=== PATIENT | female | born 1960 | race African-American/Black ===

== ENCOUNTER → 2016-07-01 | Outpatient (CLI) | payer BC ==
--- NOTE | 2016-07-02 11:15 | MM ---
Reason for exam: screening (asymptomatic). Last mammogram was performed 1 year ago. History: Patient is postmenopausal. Family history of breast cancer in mother at age 86 and premenopausal breast cancer in sister at age 30. Took estrogen for 3 months beginning at age 50. Took progesterone for 3 months beginning at age 50. Physical Findings: A clinical breast exam by your physician is recommended on an annual basis and results should be correlated with mammographic findings. MG Screening Mammo w CAD Bilateral CC and MLO view(s) were taken. Prior study comparison: June 19, 2015, bilateral MG screening mammo w CAD. June 01, 2014, bilateral MG screening mammo w CAD. The breast tissue is heterogeneously dense. This may lower the sensitivity of mammography. No significant changes when compared with prior studies. ASSESSMENT: Negative, BI-RAD 1 RECOMMENDATION: Routine screening mammogram of both breasts in 1 year.
== END | disposition home or self-care (01) ==
LOC: RADMAMWWP 09:01
PROVIDERS: ATTEND Internal Medicine
DX: Z12.31 Encounter for screening mammogram for malignant neoplasm of breast (principal)

== ENCOUNTER 2016-10-11 13:25 | Emergency (ER) | payer BC ==
[2016-10-11 13:39] VITALS: RESP 18
[2016-10-11] MEDS ORDERED: ASPIRIN 325 MG TAB PO STA (14:10)
[2016-10-11] MEDS ORDERED: MECLIZINE 12.5 MG TAB PO STA (14:10)
[2016-10-11] MEDS ORDERED: SODIUM CHLORIDE 0.9% 1,000 ML IV ONE (14:10)
[2016-10-11 14:39] LABS: Basophils % (A) 0 %; CH 25.1; CHCM 31.8; Eosinophils # (A) 0.1 k/uL (0-0.7); Eosinophils % (A) 1 %; HCT 42.3 % (34.0-46.0); HDW 2.39; HGB 13.5 gm/dL (11.4-16.0); Luc # (Auto) 0.08; Luc % (Auto) 1; Lymphocytes # (A) 0.9 k/uL (1.0-4.8); Lymphocytes % (A) 15 %; MCH 25.2 pg (25.0-35.0); MCHC 31.8 g/dL (31.0-37.0); MCV 79.4 fL (80.0-100.0); Mean Platelet Volume 7.1; Monocytes # (A) 0.2 k/uL (0-1.0); Monocytes % (A) 4 %; Neutrophils # (A) 4.8 k/uL (1.3-7.7); Neutrophils % (A) 79 %; RBC 5.33 m/uL (3.80-5.40); RDW 14.6 % (11.5-15.5); WBC 6.1 k/uL (3.8-10.6)
[2016-10-11 14:54] LABS: Anion Gap 12 mmol/L; Blood Urea Nitrogen 16 mg/dL (7-17); Calcium 9.5 mg/dL (8.4-10.2); Carbon Dioxide 24 mmol/L (22-30); Chloride 109 mmol/L (98-107); Glucose 101 mg/dL (74-99); Non-African American GFR(MDRD) >60 (>60 ml/min/1.73 sqM); Potassium 4.3 mmol/L (3.5-5.1); Sodium 145 mmol/L (137-145)
--- NOTE | 2016-10-11 15:04 | XR ---
EXAMINATION TYPE: XR chest 2V DATE OF EXAM: 10/11/2016 2:42 PM COMPARISON: NONE HISTORY: Chest pain TECHNIQUE: Frontal and lateral views of the chest are obtained. FINDINGS: There is no heart failure nor confluent pneumonic infiltrate. There is elevated left diaph ragm. There is a distended gas-filled stomach. There is no sign of pleural effusion. IMPRESSION: Mildly elevated left diaphragm could relate to partial paralysis. No heart failure. Larg e gas-filled stomach.
[2016-10-11] MEDS ORDERED: ONDANSETRON 4 MG/2 ML VIAL IVP STA (15:29)
--- NOTE | 2016-10-11 15:29 | ED ---
General Adult HPI - General Chief complaint: Nausea/Vomiting/Diarrhea Stated complaint: Vomiting, dizzy Source: patient Mode of arrival: wheelchair Limitations: no limitations - History of Present Illness Initial comments: 56-year-old Afro-[place] female presented for evaluation of lightheadedness and dizziness since Wednesday. She states that her symptoms have gradually progressed through yesterday at which point she started to develop some nausea and vomiting. Today she had some dry heaves. She describes the symptoms as room spinning and she's better when laying down worsen she standing up. She is also had some episodes of diarrhea. She had similar symptoms in the past when she had a sinus infection but states that she hasn't been exhibiting any symptoms like that currently. After further questioning she also admitted to some substernal chest discomfort that is a little different than her normal GERD. She denies any abdominal pain, constipation, dysuria, hematochezia, melena, hematemesis. - Related Data Home Medications Medication Instructions Recorded Confirmed Diphenox-Atrop 2.5-0.025 mg 1 tab PO QID PRN 10/11/16 10/11/16 [Lomotil] Ibuprofen [Advil] 400 mg PO Q8HR PRN 10/11/16 10/11/16 Previous Rx's Medication Instructions Recorded Meclizine [Antivert] 25 mg PO TID #30 tab 10/11/16 Allergies Allergy/AdvReac Type Severity Reaction Status Date / Time No Known Allergies Allergy Unverified 10/11/16 14:12 Review of Systems ROS Statement: Those systems with pertinent positive or pertinent negative responses have been documented in the HPI. ROS Other: All systems not noted in ROS Statement are negative. Constitutional: Denies: fever, chills Eyes: Denies: eye pain, eye discharge, vision change ENT: Denies: ear pain, throat pain Respiratory: Denies: cough, dyspnea Cardiovascular: Reports: chest pain. Denies: palpitations, dyspnea on exertion , orthopnea, edema Endocrine: Denies: fatigue, polydipsia, polyuria Gastrointestinal: Reports: nausea, vomiting, diarrhea. Denies: abdominal pain, constipation, hematemesis, melena, hematochezia Genitourinary: Denies: urgency, dysuria Musculoskeletal: Denies: back pain, arthralgia, myalgia Skin: Denies: rash, lesions Neurological: Reports: vertigo. Denies: headache, weakness, numbness, paresthesias, confusion Psychiatric: Denies: anxiety, depression Hematological/Lymphatic: Denies: easy bleeding, easy bruising Past Medical History Past Medical History: No Reported History History of Any Multi-Drug Resistant Organisms: None Reported Past Surgical History: Section, Hysterectomy Past Psychological History: No Psychological Hx Reported Smoking Status: Never smoker Past Alcohol Use History: None Reported Past Drug Use History: None Reported General Exam Limitations: no limitations Course Vital Signs 10/11/16 10/11/16 10/11/16 13:36 14:38 18:46 Temperature 98.0 F 98.2 F Pulse Rate 84 71 61 Respiratory 18 18 18 Rate Blood Pressure 142/87 143/95 122/83 O2 Sat by Pulse 100 99 100 Oximetry EKG Findings - EKG Comments: EKG Findings:: Normal sinus rhythm with a ventricular rate of 82, YASMANI 136, QRS 72, QT/QTC 380/443. Medical Decision Making - Medical Decision Making 56-year-old female presented for evaluation of nausea vomiting lightheadedness and dizziness since Wednesday. She states her symptoms progressed through Wednesday and resulted in the nausea and vomiting Wednesday and dry heaving today. She states the symptoms are like the room is spinning and she's better when laying down and worse when standing up. On physical examination she has cranial nerves II-12 intact without focal neurologic deficit. She is able to ambulate with normal gait and station. Lungs are clear to auscultation bilaterally abdomen is soft and nontender to palpation without peritoneal signs of guarding, rigidity, rebound. Heart sounds reveal no murmurs rubs or gallops. Patient states the nausea and vomiting is only present when she has a lightheadedness and dizziness. With a normal neuro exam is likely due to vertigo (BPPV) however given some mild chest discomfort we'll work her up to rule out ACS. Labs revealed no significant abnormalities and chest x-ray showed no acute process. The patient was reevaluated and stated she had resolution of her symptoms. She is feeling much better and stated that she would like to be discharged home. The patient was informed that this would be possible and that she would be required to follow-up with her primary care physician but to return to this facility if her symptoms should worsen or persist. She is further informed that she be given a prescription for Antivert and to take as prescribed. The patient acknowledged an understanding of this information and agreed with this plan of care. - Lab Data Result diagrams: 10/11/16 14:23 10/11/16 14:23 Lab Results 10/11/16 10/11/16 10/11/16 Range/Units 14:23 14: 14:23 WBC 6.1 (3.8-10.6) k/uL RBC 5.33 (3.80-5.40) m/uL Hgb 13.5 (11.4-16.0) gm/dL Hct 42.3 (34.0-46.0) % MCV 79.4 L (80.0-100.0) fL MCH 25.2 (25.0-35.0) pg MCHC 31.8 (31.0-37.0) g/dL RDW 14.6 (11.5-15.5) % Plt Count 210 (150-450) k/uL Neutrophils % 79 % Lymphocytes % 15 % Monocytes % 4 % Eosinophils % 1 % Basophils % 0 % Neutrophils # 4.8 (1.3-7.7) k/uL Lymphocytes # 0.9 L (1.0-4.8) k/uL Monocytes # 0.2 (0-1.0) k/uL Eosinophils # 0.1 (0-0.7) k/uL Basophils # 0.0 (0-0.2) k/uL Sodium 145 (137-145) mmol/L Potassium 4.3 (3.5-5.1) mmol/L Chloride 109 H (98-107) mmol/L Carbon Dioxide 24 (22-30) mmol/L Anion Gap 12 mmol/L BUN 16 (7-17) mg/dL Creatinine 0.70 (0.52-1.04) mg/dL Est GFR (MDRD) Af Amer >60 (>60 ml/min/1.73 sqM) Est GFR (MDRD) Non-Af >60 (>60 ml/min/1.73 sqM) Glucose 101 H (74-99) mg/dL Calcium 9.5 (8.4-10.2) mg/dL Troponin I (0.000-0.034) ng/mL NT-Pro-B Natriuret Pep 80 pg/mL 10/11/16 10/11/16 Range/Units 14:23 17:40 WBC (3.8-10.6) k/uL RBC (3.80-5.40) m/uL Hgb (11.4-16.0) gm/dL Hct (34.0-46.0) % MCV (80.0-100.0) fL MCH (25.0-35.0) pg MCHC (31.0-37.0) g/dL RDW (11.5-15.5) % Plt Count (150-450) k/uL Neutrophils % % Lymphocytes % % Monocytes % % Eosinophils % % Basophils % % Neutrophils # (1.3-7.7) k/uL Lymphocytes # (1.0-4.8) k/uL Monocytes # (0-1.0) k/uL Eosinophils # (0-0.7) k/uL Basophils # (0-0.2) k/uL Sodium (137-145) mmol/L Potassium (3.5-5.1) mmol/L Chloride (98-107) mmol/L Carbon Dioxide (22-30) mmol/L Anion Gap mmol/L BUN (7-17) mg/dL Creatinine (0.52-1.04) mg/dL Est GFR (MDRD) Af Amer (>60 ml/min/1.73 sqM) Est GFR (MDRD) Non-Af (>60 ml/min/1.73 sqM) Glucose (74-99) mg/dL Calcium (8.4-10.2) mg/dL Troponin I <0.012 <0.012 (0.000-0.034) ng/mL NT-Pro-B Natriuret Pep pg/mL Disposition Clinical Impression: Lightheadedness, Dizziness Disposition: HOME SELF-CARE Condition: Stable Instructions: Vertigo (ED) Additional Instructions: Please use medication as discussed. Please follow up with family doctor if symptoms have not improved over the next two days. Please return to the emergency room if your symptoms increase or worsen or for any other concerns. Prescriptions: Meclizine [Antivert] 25 mg PO TID #30 tab Referrals: Delphine Pena MD [Primary Care Provider] - 1-2 days Time of Disposition: 18:41
[2016-10-11 18:48] VITALS: BP 122/83; PULSE 61; TEMP 98.2
== END 2016-10-11 19:04 | disposition home or self-care (01) ==
LOC: EC 13:25
DX: R42 Dizziness and giddiness (principal); R11.2 Nausea with vomiting, unspecified; R19.7 Diarrhea, unspecified
CPT/HCPCS: 36415; 93005; 83880; 80048; 84484; 85025; 71020; 99284; 96374; 96361; J2405

== ENCOUNTER → 2017-08-24 | Outpatient (CLI) | payer BC ==
--- NOTE | 2017-08-24 09:11 | MM ---
Reason for exam: screening (asymptomatic). Last mammogram was performed 1 year and 2 months ago. History: Patient is postmenopausal. Family history of breast cancer in mother at age 86 and premenopausal breast cancer in sister at age 30. Took estrogen for 3 months beginning at age 50. Took progesterone for 3 months beginning at age 50. Physical Findings: A clinical breast exam by your physician is recommended on an annual basis and results should be correlated with mammographic findings. MG 3D Screening Mammo W/Cad Bilateral CC and MLO view(s) were taken. Prior study comparison: July 01, 2016, bilateral MG screening mammo w CAD. June 19, 2015, bilateral MG screening mammo w CAD. The breast tissue is extremely dense which could obscure a lesion on mammography. There is chronic nodularity in the right breast. There is no dominant lesion. No significant changes when compared with prior studies. ASSESSMENT: Benign, BI-RAD 2 RECOMMENDATION: Routine screening mammogram of both breasts in 1 year.
== END | disposition home or self-care (01) ==
LOC: RADMAMWWP 07:01
PROVIDERS: ATTEND Internal Medicine
DX: Z12.31 Encounter for screening mammogram for malignant neoplasm of breast (principal)
CPT/HCPCS: 77063; 77067

== ENCOUNTER → 2019-04-03 | Outpatient (CLI) | payer BC ==
--- NOTE | 2019-04-03 10:29 | MM ---
Reason for exam: screening (asymptomatic). Last mammogram was performed 1 year and 7 months ago. History: Patient is postmenopausal. Family history of breast cancer in mother at age 86 and premenopausal breast cancer in sister at age 30. Took estrogen for 3 months beginning at age 50. Took progesterone for 3 months beginning at age 50. Physical Findings: A clinical breast exam by your physician is recommended on an annual basis and results should be correlated with mammographic findings. MG 3D Screening Mammo W/Cad Bilateral CC and MLO view(s) were taken. Prior study comparison: August 24, 2017, bilateral MG 3d screening mammo w/cad. July 01, 2016, bilateral MG screening mammo w CAD. The breast tissue is heterogeneously dense. This may lower the sensitivity of mammography. Stable right intramammary lymph node. No suspicious abnormality. Stable left axillary accessory breast tissue. No significant changes when compared with prior studies. ASSESSMENT: Benign, BI-RAD 2 RECOMMENDATION: Routine screening mammogram of both breasts in 1 year.
== END | disposition home or self-care (01) ==
LOC: RADMAMWWP 09:47
PROVIDERS: ATTEND Internal Medicine
DX: Z12.31 Encounter for screening mammogram for malignant neoplasm of breast (principal)
CPT/HCPCS: 77063; 77067

== ENCOUNTER → 2019-10-25 | Outpatient (CLI) | payer BC ==
--- NOTE | 2019-10-25 12:14 | CT ---
EXAMINATION TYPE: CT urogram wo/w con DATE OF EXAM: 10/25/2019 COMPARISON: 06/28/2014 HISTORY: Hematuria CONTRAST: Performed without Oral Contrast and without and with IV Contrast, patient injected with 100 mL of Iso mackenzie 300. CT Urography was performed with unenhanced followed by enhanced images of the kidneys, ureters and ur inary bladder. Delayed images were obtained. 3d reconstruction was performed at a separate work sta tion. FINDINGS: KIDNEYS/BLADDER: No hydronephrosis. No nephrolithiasis. No distinct solid renal mass. 6 mm probabl e cyst midpole left kidney posteriorly. Urinary bladder grossly unremarkable. LUNG BASES-: No visible nodule. No infiltrate. LIVER/GB: No calcified gallstones. No space occupying hepatic lesion. Biliary tree is of normal ca liber. PANCREAS: No inflammation. No distinct mass. SPLEEN: No splenic enlargement. No lesion seen. ADRENALS: No nodule. No thickening. BOWEL: Normal appendix. Normal bowel caliber. No inflammation. GENITAL ORGANS: No gross abnormality. LYMPH NODES: No greater than 1cm abdominal or pelvic lymph nodes are appreciated. AORTA: No significant abnormality. OSSEOUS STRUCTURES: No significant abnormality is seen. OTHER: No significant additional abnormality is seen. IMPRESSION: 1. No abnormality to account for the patient's symptoms of hematuria.
== END | disposition home or self-care (01) ==
LOC: RADCTMAIN 08:24
PROVIDERS: ATTEND Urology
DX: R31.0 Gross hematuria (principal)
CPT/HCPCS: 74178; 74400; Q9967

== ENCOUNTER → 2021-01-09 | Outpatient (CLI) | payer BC ==
--- NOTE | 2021-01-13 10:02 | MM ---
Reason for exam: screening (asymptomatic). Last mammogram was performed 1 year and 9 months ago. History: Patient is postmenopausal. Family history of breast cancer in mother at age 86 and premenopausal breast cancer in sister at age 30. Took estrogen for 3 months beginning at age 50. Took progesterone for 3 months beginning at age 50. Physical Findings: A clinical breast exam by your physician is recommended on an annual basis and results should be correlated with mammographic findings. MG Screening Mammo w CAD Bilateral CC and MLO view(s) were taken. Prior study comparison: April 03, 2019, bilateral MG 3d screening mammo w/cad. August 24, 2017, bilateral MG 3d screening mammo w/cad. The breast tissue is heterogeneously dense. This may lower the sensitivity of mammography. There is chronic nodularity in the right breast. No significant changes when compared with prior studies. ASSESSMENT: Benign, BI-RAD 2 RECOMMENDATION: Routine screening mammogram of both breasts in 1 year.
== END | disposition home or self-care (01) ==
LOC: RADMAMWWP 09:33
PROVIDERS: ATTEND Internal Medicine
DX: Z12.31 Encounter for screening mammogram for malignant neoplasm of breast (principal); Z78.0 Asymptomatic menopausal state; Z80.3 Family history of malignant neoplasm of breast
CPT/HCPCS: 77067

== ENCOUNTER 2021-11-07 05:56 | Day surgery (SDC) | payer BC ==
[2021-11-06 11:04] VITALS: BMI 27.4
[2021-11-07] MEDS ORDERED: LACTATED RINGERS 1,000 ML IV SCH (05:58)
[2021-11-07] MEDS ORDERED: LIDOCAINE 1% (10MG/ML) FOR IV START INTRADERMA PRN (05:58)
[2021-11-07 06:30] VITALS: RESP 16; TEMP 98.5
[2021-11-07] MEDS ORDERED: LIDOCAINE 2% INJ 20 MG/ML (2 ML VIAL) ONE (07:02)
[2021-11-07] MEDS ORDERED: PROPOFOL 10 MG/ML 20 ML VIAL IV ONE (07:02)
--- NOTE | 2021-11-07 07:21 | P.PCN ---
Date of Procedure: 11/07/21 Procedure(s) Performed: Brief history: Patient is a pleasant 61-year-old white female scheduled for an elective upper endoscopy as well as colonoscopy as a part of evaluation of epigastric burning pain/alternating diarrhea and constipation for the last several months duration. Procedure performed: Esophagogastroduodenoscopy with biopsy Colonoscopy with random biopsies Preoperative diagnosis: Epigastric burning pain Change in bowel habits Anesthesia: MAC Procedure: After informed consent was obtained from the patient was brought into the endoscopy unit and IV sedation was administered by anesthesia under continuous monitoring. Initially upper endoscopy was done. The Olympus GF 160 video endos cope was inserted inserted into the mouth and esophagus intubated without any difficulty and was gradually advanced into the stomach and duodenum and carefully examined. The bulb and second part of the duodenum appeared normal. Abscesses were done from the duodenum to rule out celiac disease. The scope was then withdrawn into the stomach adequately insufflated with air and upon careful examination the antrum had mild antral gastritis and biopsies were done from this area. The body, cardia and fundus appeared normal. The scope was then withdrawn into the esophagus. The GE junction was located at 40 cm to the incisors. It appeared regular with 2 superficial erosions consistent with LA grade B reflux esophagitis. Rest of the esophagus appeared normal. Patient tolerated the procedure well. At this time the patient continued to remain sedation. Initial digital rectal examination was normal. Olympus CF 160 video colonoscope was then inserted into the rectum and gradually advanced to the cecum without any difficulty. Careful examination was performed as the scope was gradually being withdrawn. The prep was excellent. The cecum, ascending colon, transverse colon, descending colon, sigmoid colon and rectum appeared normal. Random biopsies were done from ascending and descending colon to rule out microscopic/collagenous colitis Retroflexion was performed in the rectum and no lesions were noted. Patient tolerated the procedure well. Impression: 1. Upper endoscopy revealed mild antral gastritis and LA grade B reflux esophagitis 2. Colonoscopy was within normal limits with no evidence of colitis or colorectal neoplasia Recommendations: Findings of this examination were discussed with the patient as well as her family. She was advised to follow with the biopsy results. She will continue with omeprazole 20 mg daily and follow antireflux measures. Recommend repeat screening colonoscopy in 10 years.
[2021-11-07 07:44] VITALS: BP 104/73; PULSE 77
== END 2021-11-07 08:20 | disposition home or self-care (01) ==
LOC: ORWHC2ENDO 05:56
PROVIDERS: ATTEND Internal Medicine Gastroenterology
DX: K21.00 Gastro-esophageal reflux disease with esophagitis, without bleeding (principal); K29.50 Unspecified chronic gastritis without bleeding; R19.4 Change in bowel habit; K58.9 Irritable bowel syndrome, unspecified; Z79.899 Other long term (current) drug therapy
CPT/HCPCS: 88305; 45380; 43239; J2704; J2001

== ENCOUNTER → 2022-01-27 | Outpatient (CLI) | payer BC ==
--- NOTE | 2022-01-27 10:58 | MM ---
Reason for Exam: Additional evaluation requested from abnormal screening. Last screening mammogram was performed less than 1 month ago. Patient History: Menarche at age 12. First Full-Term at age 20. Hysterectomy at age 36. Postmenopausal. Estrogen for 3 months from age 50 until age 50. Progesterone for 3 months from age 50 until age 50. Sister had breast cancer, age 30. Mother had breast cancer, age 86. Risk Values: Genevieve 5 year model risk: 6.2%. NCI Lifetime model risk: 25.3%. Prior Study Comparison: 04/03/2019 Bilateral Screening Mammogram, [facility]. 01/09/2021 Bilateral Screening Mammogram, [facility]. 01/22/2022 Bilateral MG 3D screening mammo w/cad, [facility]. Tissue Density: Left: The breast tissue is heterogeneously dense. This may lower the sensitivity of mammography. Findings: Analyzed By CAD. Grouped coarse heterogenous calcifications within the medial upper left breast. No suspicious mass. Overall Assessment: Suspicious, BI-RAD 4 Management: Stereotactic Core Biopsy of the left breast. A clinical breast exam by your physician is recommended on an annual basis and results should be correlated with mammographic findings. This exam should not preclude additional follow-up of suspicious palpable abnormalities. Results were given to the patient verbally at the time of exam. Electronically signed and approved by: Devonte Munoz D.O.
== END | disposition home or self-care (01) ==
LOC: RADMAMWWP 10:16
PROVIDERS: ATTEND Internal Medicine
DX: R92.8 Other abnormal and inconclusive findings on diagnostic imaging of breast (principal); Z78.0 Asymptomatic menopausal state; Z80.3 Family history of malignant neoplasm of breast
CPT/HCPCS: 77061; 77065

== ENCOUNTER → 2022-02-04 | Outpatient (CLI) | payer BC ==
--- NOTE | 2022-02-10 12:58 | US ---
EXAMINATION TYPE: US kidneys/renal and bladder DATE OF EXAM: 02/04/2022 COMPARISON: NONE CLINICAL HISTORY: R31.9 hematuria. Macroscopic hematuria EXAM MEASUREMENTS: Right Kidney: 11.0 x 3.9 x 4.9 cm Left Kidney: 10.9 x 4.8 x 5.4 cm Right Kidney: No hydronephrosis or masses seen Left Kidney: Inferior pole obscured by bowel gas Bladder: Distended, anechoic Bilateral Jets seen There is no evidence for hydronephrosis at this point in time. No nephrolithiasis is seen. No flavia s are identified. The urinary bladder is anechoic. Bilateral ureteral jets are seen. IMPRESSION: No discrete abnormality appreciated at this time.
== END | disposition home or self-care (01) ==
LOC: RADUSWWP 09:59
PROVIDERS: ATTEND Internal Medicine
DX: R31.9 Hematuria, unspecified (principal)
CPT/HCPCS: 76770

== ENCOUNTER → 2022-02-20 | Day surgery (SDC) | payer BC ==
--- NOTE | 2022-02-23 11:06 | MM ---
Date of Procedure: 02/20/22 Preoperative Diagnosis: Microcalcifications of concern in the left breast upper medial quadrant Postoperative Diagnosis: Same Procedure(s) Performed: Stereotactic core biopsy left breast Anesthesia: local Surgeon: Leia Walton Pathology: other (Breast tissue, a few scattered microcalcifications) Condition: stable Disposition: same day Indications for Procedure: Microcalcifications of concern left breast Operative Findings: Few scattered calcifications in the biopsy specimen Description of Procedure: The patient was taken to the stereotactic core biopsy room. She was positioned prone on the lo-rad table. A CC from above approach was utilized. The lesion of concern was identified. There was some question that this may be in the vessel and consultation with radiology was obtained and it was felt that the area was most likely not in the vessel and biopsy should be attempted. The lesion was therefore targeted. The breast was prepped using Betadine. 20 mL of 1% lidocaine were used to anesthetize the area of concern. A petite 9 gauge vacuum-assisted core rotating biopsy needle was driven to the correct coordinates. A prefire film was obtained. The needle was noted to be in the correct location. The needle was fired. A post fire film was obtained. The needle was noted to be in the correct location. 13 core biopsy specimens were obtained. The specimen radiograph revealed several small calcifications. Additional sampling was performed with 19 additional core biopsies. Only one additional calcification appeared in the new specimen. A marking clip was placed. The marking clip did not deploy. A second needle was driven to the correct coordinates. A secure dipesh top hat clip was placed. This appeared to be in the correct location. The specimen was sent to pathology. The patient will follow- up with Dr. Otero next week. ROSA
== END ==
LOC: RADMAMWWP 07:02
PROVIDERS: ATTEND Surgery
DX: D24.2 Benign neoplasm of left breast (principal); R92.0 Mammographic microcalcification found on diagnostic imaging of breast; N62 Hypertrophy of breast; N60.12 Diffuse cystic mastopathy of left breast; N60.82 Other benign mammary dysplasias of left breast; Z79.899 Other long term (current) drug therapy; Z87.891 Personal history of nicotine dependence; Z80.9 Family history of malignant neoplasm, unspecified
CPT/HCPCS: 88305; 19081; A4648

== ENCOUNTER → 2022-02-20 | Outpatient (CLI) | payer BC ==
[2022-02-20 07:38] VITALS: BP 126/82; PULSE 97; RESP 16; TEMP 98.2
--- NOTE | 2022-02-20 08:49 | P.GSHP ---
History of Present Illness H&P Date: 02/20/22 Chief Complaint: Microcalcifications of concern left breast upper medial marvel du Wilks is a 62-year-old female who on the 15 mg [id number] was noted to have some calcifications of concern in the left breast in the upper outer quadrant addition is views were performed of the left breast and [id number] which again revealed coarse heterogeneous calcifications within the medial upper left breast. Stereotactic core biopsy was recommended. She is seen in consultation per Dr. Pena. She does not complain of any lumps masses or nodules in either breast. She is not complaining of any nipple discharge or skin changes. She has not had any prior breast biopsies or surgery on her breast. Genevieve risk evaluation: 5 year risk: 6.2% Left tenderness: 25.3% Caffeine: 1 cup/day nicotine: Secondhand smoke exposure, she does not smoke chocolate: weekly BCP: used them in the past for about 10 years in her 20's Family history: sister: breast cancer in her 30's at 37 mother: breast cancer at 86 she did not have a recurrence no genetic testing doen Hormonal History: menarche: 12 A2 breast fed:no, age at first : 20 menopause: 50 Surgical history: hysterectomy, left ovaries for fibroids 2 c-sections Medical history: stomach pain blood in urine Social History: nicotine: second hand smoke alcohol: none drugs: none - Constitutional Constitutional: Reports sweats - EENT Eyes: denies blurred vision, denies pain Ears: deny: decreased hearing, tinnitus Ears, nose, mouth and throat: Denies headache, Denies sore throat - Breasts Breasts: bilateral: as per HPI - Cardiovascular Cardiovascular: Reports chest pain, Reports shortness of breath - Respiratory Respiratory: Denies cough, Denies 7 - Gastrointestinal Gastrointestinal: Reports as per HPI - Genitourinary (Female) Genitourinary: Reports hematuria - Menstruation Menstruation: Reports post hysterectomy, Reports postmenopausal - Musculoskeletal Musculoskeletal: Reports myalgias - Integumentary Integumentary: Denies pruritus, Denies rash - Neurological Neurological: Denies numbness, Denies weakness - Psychiatric Psychiatric: Denies anxiety, Denies depression - Endocrine Endocrine: Denies fatigue, Denies weight change - Hematologic/Lymphatic Comment: none - Allergic/Immunologic Allergic/Immunologic: Reports seasonal allergies Past Medical History Past Medical History: GERD/Reflux Additional Past Medical History / Comment(s): IBS, History of Any Multi-Drug Resistant Organisms: ESBL Date of last positivie culture/infection: 04/29/18 MDRO Source:: ESBL URINE Past Surgical History: Section, Hysterectomy Past Anesthesia/Blood Transfusion Reactions: No Reported Reaction Past Psychological History: No Psychological Hx Reported Smoking Status: Former smoker Past Alcohol Use History: None Reported Additional Past Alcohol Use History / Comment(s): quit smoking 30 yrs ago Past Drug Use History: None Reported - Past Family History Sister(s) Family Medical History: Cancer Mother Family Medical History: Cancer Medications and Allergies Home Medications Medication Instructions Recorded Confirmed Type Dicyclomine [Bentyl] 20 mg PO QID PRN 11/06/21 02/20/22 History Allergies Allergy/AdvReac Type Severity Reaction Status Date / Time No Known Allergies Allergy Verified 02/20/22 07:33 Surgical - Exam Vital Signs Temp Pulse Resp BP Pulse Ox 98.2 F 97 16 126/82 98 02/20/22 07:30 02/20/22 07:30 02/20/22 07:30 02/20/22 07:30 02/20/22 07:30 BMI: 27.5 - General no distress - Eyes normal ocular movement - Neck trachea midline - Respiratory normal respiratory effort - Cardiovascular Rhythm: regular Heart Sounds: normal: S1, S2 - Abdomen Abdomen: soft, non tender, no guarding, no rigid, no rebound - Integumentary normal turgor - Neurologic no disoriented, no combative - Musculoskeletal normal gait - Psychiatric oriented to time, oriented to person, oriented to place, speech is normal, memory intact Breast Exam: BRA: 38B inspection: bilateral grade 2/3 ptosis Palpation: Right breast: Multiple positional exam fibrocystic changes no dominant masses or nodules of concern Right axilla: No adenopathy of concern left breast: Multiple positional exam fibrocystic changes no dominant masses or nodules of concern Left axilla: No adenopathy of concern Results Mammogram reviewed with Dr. Barahona; calcifications of concern noted Assessment and Plan Assessment: Impression: Radiographic abnormality left breast are detected core biopsy recommended Strong family history of breast cancer with high Genevieve Risk evaluation, 6.2% at 5 years Abdominal pain being worked up Blood in urine Being worked up Plan: Stereotactic core biopsy left breast Workup of abdominal pain and bloating urine as per medicine We have talks about chemoprevention and more frequent surveillance secondary to risk evaluation at this time the patient would like to wait until results of her core biopsy obtained Risks and benefits of the procedure have been discussed with the patient. Risks include but are not limited to bleeding, infection, reaction to the anesthetic. If the lesion cannot be clearly delineated we may not be able to do it by stereotactic core biopsy technique. Additionally alternatives such as watchful waiting resection in the operating room were discussed but not recommended at this time. CC: Dr. Pena
== END ==
LOC: WWCWWP 07:00
PROVIDERS: ATTEND Surgery
DX: R92.8 Other abnormal and inconclusive findings on diagnostic imaging of breast (principal); R10.9 Unspecified abdominal pain; R31.9 Hematuria, unspecified; Z87.891 Personal history of nicotine dependence

== ENCOUNTER → 2022-02-26 | Outpatient (CLI) | payer BC ==
--- NOTE | 2022-02-26 08:45 | P.PN ---
Subjective Progress Note Date: 02/26/22 Principal diagnosis: Fibrocystic change Lashaun is a 62 year old female status post left breast stero biopsy. She had some pain with her neck during the procedure but tolerated the procedure without difficulty. 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 She had some focal microcalcification within the specimen. Objective - Constitutional General appearance: Present: cooperative - EENT Eyes: Present: EOMI ENT: Present: hearing grossly normal - Neck Neck: Present: normal ROM - Respiratory Respiratory: bilateral: CTA - Cardiovascular Rhythm: regular Heart sounds: normal: S1, S2 - Integumentary Integumentary Comment(s): Biopsy site left breast clean and dry no evidence of infection, small hematoma Integumentary: Present: normal turgor - Musculoskeletal Musculoskeletal: Present: gait normal - Psychiatric Psychiatric: Present: A&O x's 3, appropriate affect, intact judgment & insight Assessment and Plan Assessment: Impression: Patient status [place] [address]/findings benign Plan: Patient to have repeat left breast mammogram in 6 months with physician exam at that time Cc: Dr. Pena
[2022-02-26 08:47] VITALS: BP 128/84; PULSE 67; RESP 16; TEMP 98.1
== END | disposition home or self-care (01) ==
LOC: WWCWWP 08:35
PROVIDERS: ATTEND Surgery
DX: Z53.9 Procedure and treatment not carried out, unspecified reason (principal)

== ENCOUNTER → 2022-04-16 | Outpatient (CLI) | payer BC ==
[2022-04-16 12:51] VITALS: BP 116/79; PULSE 102; RESP 17; TEMP 97.9
--- NOTE | 2022-04-16 13:13 | P.PN ---
Subjective Progress Note Date: 04/16/22 Principal diagnosis: niopple irritation Lashaun is a 62-year-old [place] [address] was noted to have some calcifications of concern in the left breast in the upper outer quadrant addition [place] [address] which again revealed coarse heterogeneous calcifications within the medial upper left breast. Stereotactic core biopsy was recommended and preformed on 02-20-22. This was benign specific and repeat left breaset mammogram in 6 months was recommended. She does not complain of any lumps masses or nodules in either breast. She is not complaining of any nipple discharge or skin changes. She has not had any prior breast biopsies or surgery on her breast. The patient is complaining of left nipple irritation which started approximately 3 weeks ago when she had material brushing against the nipple while she was working. She is not complaining of any niopple discharge. It was more irritated and painful. It has improved since that time. Genevieve risk evaluation: 5 year risk: 6.2% Left tenderness: 25.3% Discussed risk reduction chemoprophylaxis and at this time she has declined and would like to be followed conservatively. Caffeine: 1 cup/day nicotine: Secondhand smoke exposure, she does not smoke chocolate: weekly BCP: used them in the past for about 10 years in her 20's Family history: sister: breast cancer in her 30's at 37 mother: breast cancer at 86 she did not have a recurrence no genetic testing doen Hormonal History: menarche: 12 A2 breast fed:no, age at first : 20 menopause: 50 Surgical history: hysterectomy, left ovaries for fibroids 2 c-sections Medical history: stomach pain blood in urine Social History: nicotine: second hand smoke alcohol: none drugs: none - Constitutional Constitutional: Reports sweats - EENT Eyes: denies blurred vision, denies pain Ears: deny: decreased hearing, tinnitus Ears, nose, mouth and throat: Denies headache, Denies sore throat - Breasts Breasts: bilateral: as per HPI - Cardiovascular Cardiovascular: Reports chest pain, Reports shortness of breath - Respiratory Respiratory: Denies cough, Denies 7 - Gastrointestinal Gastrointestinal: Reports as per HPI - Genitourinary (Female) Genitourinary: Reports hematuria - Menstruation Menstruation: Reports post hysterectomy, Reports postmenopausal - Musculoskeletal Musculoskeletal: Reports myalgias - Integumentary Integumentary: Denies pruritus, Denies rash - Neurological Neurological: Denies numbness, Denies weakness - Psychiatric Psychiatric: Denies anxiety, Denies depression - Endocrine Endocrine: Denies fatigue, Denies weight change - Hematologic/Lymphatic Comment: none - Allergic/Immunologic Allergic/Immunologic: Reports seasonal allergies Past Medical History Past Medical History: GERD/Reflux Additional Past Medical History / Comment(s): IBS, History of Any Multi-Drug Resistant Organisms: ESBL Date of last positivie culture/infection: 04/29/18 MDRO Source:: ESBL URINE Past Surgical History: Section, Hysterectomy Past Anesthesia/Blood Transfusion Reactions: No Reported Reaction Past Psychological History: No Psychological Hx Reported Smoking Status: Former smoker Past Alcohol Use History: None Reported Additional Past Alcohol Use History / Comment(s): quit smoking 30 yrs ago Past Drug Use History: None Reported - Past Family History Sister(s) Family Medical History: Cancer Mother Family Medical History: Cancer Medications and Allergies Home Medications Medication Instructions Recorded Confirmed Type Dicyclomine [Bentyl] 20 mg PO QID PRN 11/06/21 02/20/22 History Allergies Allergy/AdvReac Type Severity Reaction Status Date / Time No Known Allergies Allergy Verified 02/20/22 07:33 Objective - Vital Signs Vital signs: Vital Signs Temp 97.9 F 04/16/22 12:49 Pulse 102 H 04/16/22 12:49 Resp 17 04/16/22 12:49 BP 116/79 04/16/22 12:49 Pulse Ox 97 04/16/22 12:49 FiO2 Intake & Output 04/15/22 04/16/22 04/16/22 18:59 06:59 18:59 Weight 70.307 kg - Integumentary Integumentary Comment(s): examination of the left breast does not reveal any lumps masses or nodules of concern The nipple areolar area does not have any discrete lumps or masses Examination of the biopsy site does not reveal any evidence of infection or hematoma Assessment and Plan Assessment: Impression: Sensitivity of the left nipple following a stereotactic core biopsy from the nipple had material rubbed against it this has resolved Plan: Left breast mammogram in 6 months from biopsy and follow-up exam at that time Physician sensitivity continues patient will follow up sooner Cc: Dr. Pena
== END | disposition home or self-care (01) ==
LOC: WWCWWP 12:36
PROVIDERS: ATTEND Surgery
DX: Z53.9 Procedure and treatment not carried out, unspecified reason (principal)

== ENCOUNTER → 2022-08-24 | Outpatient (CLI) | payer BC ==
--- NOTE | 2022-08-24 13:25 | MM ---
Reason for Exam: Follow-up at short interval from prior study. Last screening mammogram was performed 7 month(s) ago. Patient History: Menarche at age 12. First Full-Term at age 20. Hysterectomy at age 36. Postmenopausal. Previous Hyperplasia w/o Atypia at age 62. Estrogen for 3 months from age 50 until age 50. Progesterone for 3 months from age 50 until age 50. 02/20/2022, Benign MG stereo VAD BX LT on the left side. Sister had breast cancer, age 30. Mother had breast cancer, age 86. Risk Values: Genevieve 5 year model risk: 7.3%. NCI Lifetime model risk: 29.1%. Prior Study Comparison: 01/09/2021 Bilateral Screening Mammogram, [facility]. 01/22/2022 Bilateral MG 3D screening mammo w/cad, [facility]. 01/27/2022 Left MG 3D work up w/cad LT, [facility]. Tissue Density: Left: The breast tissue is heterogeneously dense. This may lower the sensitivity of mammography. Findings: Analyzed By CAD. Clip marker from prior biopsy is noted. No suspicious calcifications. No evidence for mass or distortion. Overall Assessment: Benign, BI-RAD 2 Management: Screening Mammogram of both breasts in 6 months. A clinical breast exam by your physician is recommended on an annual basis and results should be correlated with mammographic findings. This exam should not preclude additional follow-up of suspicious palpable abnormalities. Results were given to the patient verbally at the time of exam. Electronically signed and approved by: Ruben Cannon M.D. Radiologis
== END | disposition home or self-care (01) ==
LOC: RADMAMWWP 08:19
PROVIDERS: ATTEND Surgery
DX: R92.8 Other abnormal and inconclusive findings on diagnostic imaging of breast (principal); Z78.0 Asymptomatic menopausal state; Z80.3 Family history of malignant neoplasm of breast
CPT/HCPCS: 77061; 77065

== ENCOUNTER → 2023-03-12 | Outpatient (CLI) | payer BC ==
--- NOTE | 2023-03-16 14:36 | MM ---
Reason for Exam: Screening (asymptomatic). Last mammogram was performed 1 year(s) and 2 month(s) ago. Patient History: Menarche at age 12. First Full-Term at age 20. Hysterectomy at age 36. Postmenopausal. Previous Hyperplasia w/o Atypia at age 62. Estrogen for 3 months from age 50 until age 50. Progesterone for 3 months from age 50 until age 50. 02/20/2022, Benign MG stereo VAD BX LT on the left side. Sister had breast cancer, age 30. Mother had breast cancer, age 86. Risk Values: Genevieve 5 year model risk: 4.0%. NCI Lifetime model risk: 15.4%. Prior Study Comparison: 01/22/2022 Bilateral MG 3D screening mammo w/cad, [facility]. 01/27/2022 Left MG 3D work up w/cad LT, [facility]. 08/24/2022 Left MG 3D diag mammo w/cad LT, [facility]. Tissue Density: The breast tissue is heterogeneously dense. This may lower the sensitivity of mammography. Findings: Analyzed By CAD. Pattern appears stable. Chronic nodularity is within the right breast. Core marker is within the left breast. No suspicious groups of microcalcifications, spiculated or lobular masses, architectural distortion or other secondary signs of malignancy are mammographically apparent. Overall Assessment: Benign, BI-RAD 2 Management: Screening Mammogram of both breasts in 1 year. A negative mammogram report should not preclude additional follow up of suspicious palpable abnormalities. Patient should continue monthly self breast exam. A clinical breast exam by your physician is recommended on an annual basis and results should be correlated with mammographic findings. Electronically signed and approved by: Ramiro Hunter D.O. Radiologis
== END | disposition home or self-care (01) ==
LOC: RADMAMWWP 16:53
PROVIDERS: ATTEND Family Medicine
DX: Z12.31 Encounter for screening mammogram for malignant neoplasm of breast (principal); Z78.0 Asymptomatic menopausal state; Z80.3 Family history of malignant neoplasm of breast
CPT/HCPCS: 77063; 77067

== ENCOUNTER → 2023-12-17 | Outpatient (CLI) | payer BC ==
--- NOTE | 2023-12-17 17:50 | CT ---
EXAMINATION TYPE: CT chest wo/w con CT DLP: 360.5 mGycm, Automated exposure control for dose reduction was used. DATE OF EXAM: 12/17/2023 5:21 PM COMPARISON: None CLINICAL INDICATION:Female, 63 years old with history of R91.1 Right sided pulmonary nodule; PH, f/u nodule TECHNIQUE: Multiple axial images were obtained through the chest. Sagittal and coronal reformats were created for review. Contrast used:100ml mL of Isovue 300 without and with IV Contrast (None if empty) Oral contrast used: (None if empty) FINDINGS: LUNGS/ PLEURA: Elevated left diaphragm. Aricept emphysema changes. No focal consolidation or pneumoth orax. AIRWAY: Patent and unremarkable. HEART: Size within normal limits. MEDIASTINUM: No gross evidence of adenopathy. VASCULATURE: No aortic aneurysm. No central pulmonary embolus. The aorta and its branches are patent . MUSCULOSKELETAL: No acute osseous abnormalities SOFT TISSUES/LYMPH NODES: Unremarkable. LOWER NECK: No significant findings. UPPER ABDOMEN: No significant findings. IMPRESSION: 1. No pulmonary nodules definitively visualized. No priors are available for comparison. 2. Elevated left diaphragm. Correlate for phrenic nerve injury. 3. Coarsened pulmonary interstitium correlate for interstitial lung disease.
== END | disposition home or self-care (01) ==
LOC: RADCTMAIN 16:43
PROVIDERS: ATTEND Family Medicine
DX: R91.1 Solitary pulmonary nodule (principal); J84.9 Interstitial pulmonary disease, unspecified; T14.8XXA Other injury of unspecified body region, initial encounter; Q79.1 Other congenital malformations of diaphragm
CPT/HCPCS: 71270; Q9967

== ENCOUNTER → 2024-01-21 | Outpatient (CLI) | payer BC ==
--- NOTE | 2024-02-18 13:30 | FL ---
Lashaun Ny : 1960 EXAMINATION TYPE: FL sniff test without CXR DATE OF EXAM: 01/21/2024 Comparison: None Total fluoroscopy time 39 seconds. Total images: 10 Total DAP: 20 mGycm2. Clinical History: 64-year-old female J98.6, disorders of the diaphragm, shortness of breath for 4 yea rs TECHNIQUE: Real-time fluoroscopy fluoroscopic assessment of the diaphragm during quiet breathing, avtar p inspiration expiration, and sniffing maneuver. Findings: There is asymmetric elevation of the left hemidiaphragm and baseline. During quiet breathing, there is decreased excursion of the left hemidiaphragm. During deep inspiration and expiration, again, decreased excursion is noted on the left. During sniffing maneuver, there is some paradoxical movement of the left hemidiaphragm. Impression: Paradoxical movement of the elevated left hemidiaphragm during sniffing maneuver in keepi ng with weakness/paresis of the left hemidiaphragm.
== END | disposition home or self-care (01) ==
LOC: RADFLMAIN 11:02
PROVIDERS: ATTEND Internal Medicine
DX: J98.6 Disorders of diaphragm (principal); R06.02 Shortness of breath
CPT/HCPCS: 76000

== ENCOUNTER → 2024-03-13 | Outpatient (CLI) | payer BC ==
--- NOTE | 2024-03-14 09:01 | MM ---
Reason for Exam: Screening (asymptomatic). Last screening mammogram was performed 12 month(s) ago. Patient History: Menarche at age 12. First Full-Term at age 20. Hysterectomy at age 36. Postmenopausal. Previous Hyperplasia w/o Atypia at age 62. Estrogen for 3 months from age 50 until age 50. Progesterone for 3 months from age 50 until age 50. 02/20/2022, Benign MG stereo VAD BX LT on the left side. Sister had breast cancer, age 30. Mother had breast cancer, age 86. Risk Values: Genevieve 5 year model risk: 4.2%. NCI Lifetime model risk: 15.0%. Prior Study Comparison: 01/27/2022 Left MG 3D work up w/cad LT, [facility]. 08/24/2022 Left MG 3D diag mammo w/cad LT, [facility]. 03/12/2023 Bilateral MG 3D screening mammo w/cad, [facility]. Tissue Density: The breasts are heterogeneously dense, which may obscure small masses. Findings: Analyzed By CAD. Right breast: There is no suspicious group of microcalcifications or new suspicious mass. Left breast: There is no suspicious group of microcalcifications or new suspicious mass. Overall Assessment: Negative, BI-RAD 1 Management: Screening Mammogram of both breasts in [address] [facility] will attempt to contact patient to return for supplemental views and ultrasound if indicated. Patient should continue monthly self-breast exams. A clinical breast exam by your physician is recommended on an annual basis. This exam should not preclude additional follow-up of suspicious palpable abnormalities. Note on Genevieve scores and lifetime risk: 1. A Genevieve score greater than 3% is considered moderate risk. If this is the case, consider specialist referral to assess eligibility for a risk reducing agent. 2. If overall lifetime risk for the development of breast cancer is 20% or higher, the patient may qualify for future screening with alternating mammogram and breast MRI. [facility], , 03/14/2024 8:58 AM. Electronically signed and approved by: Henry Jin DO
== END | disposition home or self-care (01) ==
LOC: RADMAMWWP 16:17
PROVIDERS: ATTEND Family Medicine
CPT/HCPCS: 77063; 77067

== ENCOUNTER 2024-09-04 14:49 | Emergency (ER) | payer BC ==
[2024-09-04 14:59] VITALS: RESP 18
--- NOTE | 2024-09-04 15:11 | ED ---
ENT HPI - General Chief complaint: ENT Stated complaint: frequent nose bleeds Time Seen by Provider: 09/04/24 15:11 Source: patient Mode of arrival: ambulatory Limitations: no limitations - History of Present Illness Initial comments: 64-year-old female presented the ER for evaluation of epistaxis. Patient states since , 08-31-2024, she has had 1 nosebleed per day. She does report remote history of these. She does states she frequently gets these more commonly in the winter due to the dry air and they typically occur at work. She states the bleeding last for about 5 to 10 minutes and comes from left nostril. She denies any bleeding from right nostril or bleeding draining down her throat. No known nasal traumas and patient does not take any blood thinners. Patient denies any difficulty breathing, wheezing, headache, dizziness, lightheadedness or other complaints at this time. Patient states she was sent by PCP for further evaluation. - Related Data Home Medications Medication Instructions Recorded Confirmed Dicyclomine [Bentyl] 20 mg PO QID PRN 11/06/21 04/16/22 Allergies Allergy/AdvReac Type Severity Reaction Status Date / Time No Known Allergies Allergy Verified 09/04/24 14:59 Review of Systems ROS Statement: Those systems with pertinent positive or pertinent negative responses have been documented in the HPI. ROS Other: All systems not noted in ROS Statement are negative. Past Medical History Past Medical History: GERD/Reflux Additional Past Medical History / Comment(s): IBS, History of Any Multi-Drug Resistant Organisms: ESBL Date of last positivie culture/infection: 04/29/18 MDRO Source:: ESBL URINE Past Surgical History: Section, Hysterectomy Past Anesthesia/Blood Transfusion Reactions: No Reported Reaction Past Psychological History: No Psychological Hx Reported Smoking Status: Former smoker Past Alcohol Use History: None Reported Past Drug Use History: None Reported - Past Family History Sister(s) Family Medical History: Cancer Mother Family Medical History: Cancer General Exam Limitations: no limitations General appearance: alert, in no apparent distress ENT exam: Present: normal exam, normal oropharynx, mucous membranes moist, TM's normal bilaterally, other (No active bleeding on exam. No septal deviation or septal hematoma. No nasal bone tenderness to palpation. No sinus tenderness) Neck exam: Present: normal inspection. Absent: tenderness, meningismus, lymphadenopathy Respiratory exam: Present: normal lung sounds bilaterally. Absent: respiratory distress, wheezes, rales, rhonchi, stridor Cardiovascular Exam: Present: regular rate, normal rhythm, normal heart sounds. Absent: systolic murmur, diastolic murmur, rubs, gallop, clicks Neurological exam: Present: alert, oriented X3, CN II-XII intact Skin exam: Present: warm, dry, intact, normal color. Absent: rash Course Vital Signs 09/04/24 09/04/24 14:55 15:23 Temperature 98.0 F 98.7 F Pulse Rate 104 H 97 Respiratory 18 18 Rate Blood Pressure 144/85 118/87 O2 Sat by Pulse 98 99 Oximetry Medical Decision Making - Medical Decision Making Was pt. sent in by a medical professional or institution ([facility], [employer]ERAL JUDGE, urgent care, hospital, or longterm...) When possible be specific @ -No Did you speak to anyone other than the patient for history (EMS, parent, family, police, friend...)? What history was obtained from this source @ -No Did you review nursing and triage notes (agree or disagree)? Why? @ -I reviewed and agree with nursing and triage notes Were old charts reviewed (outside hosp., previous admission, EMS record, old EKG, old radiological studies, urgent care reports/EKG's, longterm records)? Report findings @ -No old charts were reviewed Differential Diagnosis (chest pain, altered mental status, abdominal pain women, abdominal pain men, vaginal bleeding, weakness, fever, dyspnea, syncope, headache, dizziness, GI bleed, back pain, seizure, CVA, palpatations, mental health, musculoskeletal)? @ -Epistaxis septal hematoma, nasal bone fracture, foreign body... This list is not meant to be all-inclusive EKG interpreted by me (3pts min.). @ -None done X-rays interpreted by me (1pt min.). @ -None done CT interpreted by me (1pt min.). @ -None done U/S interpreted by me (1pt. min.). @ -None done What testing was considered but not performed or refused? (CT, X-rays, U/S, labs)? Why? @ -None What meds were considered but not given or refused? Why? @ -None Did you discuss the management of the patient with other professionals (professionals i.e. , PA, FEDERAL JUDGE, lab, RT, psych nurse, social media senior associate, typewriter aligner, teacher, credit products officer, vocational case manager)? Give summary @ -No Was smoking cessation discussed for >3mins.? @ -No Was critical care preformed (if so, how long)? @ -No Were there social determinants of health that impacted care today? How? (Homelessness, low income, unemployed, alcoholism, drug addiction, tra nsportation, low edu. Level, literacy, decrease access to med. care, fpc, rehab)? @ -No Was there de-escalation of care discussed even if they declined (Discuss DNR or withdrawal of care, Hospice)? DNR status @ -No What co-morbidities impacted this encounter? (DM, HTN, Smoking, COPD, CAD, Cancer, CVA, ARF, Chemo, Hep., AIDS, mental health diagnosis, sleep apnea, morbid obesity)? @ -None Was patient admitted / discharged? Hospital course, mention meds given and route, prescriptions, significant lab abnormalities, going to OR and other pertinent info. @ -Discharge. 64-year-old female presented the ER for evaluation of epistaxis. Vitals were acceptable limits. There is no active bleeding on exam, no evidence of septal hematoma, no nasal bone tenderness or deviation. Patient is stable for discharge with close follow-up to ENT, referral given. Patient discharged with a nasal clamp and thorough instructions if bleeding were to recur. I also recommended humidified air. Strict return parameters discussed. Patient discharged stable condition. Patient verbally expressed understanding agree with care plan. Case discussed with ED attending of Dr. Rain. Undiagnosed new problem with uncertain prognosis? @ -No Drug Therapy requiring intensive monitoring for toxicity (Heparin, Nitro, Insulin, Cardizem)? @ -No Were any procedures done? @ -No Diagnosis/symptom? @ -Epistaxis Acute, or Chronic, or Acute on Chronic? @ -Acute Uncomplicated (without systemic symptoms) or Complicated (systemic symptoms)? @ -Uncomplicated Side effects of treatment? @ -No Exacerbation, Progression, or Severe Exacerbation? @ -No Poses a threat to life or bodily function? How? (Chest pain, [place], [place], pneumonia, PE, COPD, DKA, ARF, appy, cholecystitis, CVA, Diverticulitis, Homicidal, Suicidal, threat to staff... and all critical care pts) @ -No Disposition Clinical Impression: Epistaxis Disposition: HOME SELF-CARE Condition: Stable Instructions (If sedation given, give patient instructions): Nosebleed (ED) Additional Instructions: If bleeding were to recur. Blow nose approximately 3 times and placed a nose clamp for 15 to 20 minutes. I also recommend humidified air. Follow-up with PCP and ENT. Return to the ER for an new or worsening symptoms. Is patient prescribed a controlled substance at d/c from ED?: No Referrals: Clinton Feliz MD [Primary Care Provider] - 1-2 days Lázaro Herrera MD [STAFF PHYSICIAN] - 1-2 days Time of Disposition: 15:17
[2024-09-04 15:25] VITALS: BP 118/87; PULSE 97; TEMP 98.7
== END 2024-09-04 15:24 | disposition home or self-care (01) ==
LOC: EC 14:49
DX: R04.0 Epistaxis (principal); Z87.891 Personal history of nicotine dependence
CPT/HCPCS: 99283